=== PATIENT | male | born 1935 | race Caucasian/White ===

== ENCOUNTER 2017-04-13 15:50 | Emergency (ER) | payer MEDICARE, MEDICAID ==
[~2017-04-13] VITALS: Ht 172.7 cm; Wt 78.0 kg
[~2017-04-13 15:50] MED LIST: AMBIEN5 MG PO; AMLODIPINE10 MG PO; AMLODIPINE5 MG PO; ANUSOL HC25 MG RE; ASPIRIN CHEWABL81 MG OR; BACTRIM DS1 TAB PO; BENICAR HCT1 TA1 PO; CEFTIN250 MG PO; CLARITIN10 M1 PO; COLACE100 MG OR; CUBICIN500 MG IV; DEXILANT60 MG OR; DIGOXIN0.25 MG PO; DOXYCYC MONO100 M3 OR; EDTA PO; FACTOR 8 IV; FACTOR IV; FACTOR VIII IV; HYDRALAZINE25 MG PO; LASIX40 MG OR; LISINOPRIL2.5 MG PO; LISINOPRIL20 MG PO; LOPRESSOR25 M1 PO; METFORMIN500 M1 PO; METOPROL TAR50 MG PO; MILK OF MAG30 ML/UDC PO; MIRALAX3350 N1 PO; NORMAL SALIN0.9 % IV; OMEPRAZOLE20 MG PO; PERCOCET 5/321 COMBO PO; PERCOCET 5/325M1 TAB PO; ROBITUSSIN AC10 ML PO; SIMVASTATIN40 MG PO; TYLENOL # 31 TA1 OR; VENTOLIN HFA IN; ZOCOR20 MG PO; ZOFRAN ODT4 MG OR; [UNRECOGNIZED DRUG - CODE] RE; [UNRECOGNIZED DRUG - OTHER] IV
[2017-04-13] MEDS ORDERED: EC-NAPROSYN500 MG PO (16:38)
[2017-04-13] MEDS ORDERED: FLEXERIL PO (16:38)
[2017-04-13] MEDS ORDERED: PERCOCET 5/325M1 TAB PO (16:38)
[2017-04-13 16:47] VITALS: BP 150/70
== END 2017-04-13 16:55 | disposition home or self-care (01) ==
LOC: ED 15:50
DX: R51 Headache (principal); M43.6 Torticollis

== ENCOUNTER 2019-04-08 19:31 | Emergency (ER) | payer OTHER, MEDICARE, MEDICAID ==
[~2019-04-08] VITALS: Ht 172.7 cm; Wt 78.0 kg
[~2019-04-08 19:31] MED LIST changes: +AMLODIPINE BESY10 MG PO; -AMLODIPINE10 MG PO; +EC-NAPROSYN500 MG PO; +FLEXERIL PO; +HYDRALAZINE10 MG PO
[2019-04-08] MEDS ORDERED: ECOTRIN LOW STR81 MG PO (20:12)
[2019-04-08] MEDS ORDERED: TRIGLIDE160 MG PO (20:13)
[2019-04-08] MEDS ORDERED: METOPROL TAR100 MG PO (20:15)
[2019-04-08] MEDS ORDERED: JANUVIA100 MG PO (20:17)
[2019-04-08] MEDS ORDERED: CLONIDINE0.1 MG PO (20:17)
[2019-04-08] MEDS ORDERED: LEVOTHYROXIN25 MC1 PO (20:18)
[2019-04-08] MEDS ORDERED: NOVOSEVEN RT IJ (20:19)
[2019-04-08] MEDS ORDERED: HYDROCO/APAP1 TA9 PO (20:19)
[2019-04-08] MEDS ORDERED: ASPIRIN 8181 MG PO (20:38)
[2019-04-08] MEDS ORDERED: FLEXERIL5 M1 PO (21:25)
[2019-04-08 21:30] VITALS: BP 138/74
== END 2019-04-08 21:30 | disposition home or self-care (01) | DRG 552 ==
LOC: ED 19:31
DX: S16.1XXA Strain of muscle, fascia and tendon at neck level, initial encounter (principal); V43.52XA Car driver injured in collision with other type car in traffic accident, initial encounter

== ENCOUNTER 2020-04-17 07:43 | Day surgery (SDC) | payer MEDICARE, MEDICAID ==
[~2020-04-17 07:43] MED LIST changes: +ASPIRIN 8181 MG PO; +CLONIDINE0.1 MG PO; +ECOTRIN LOW STR81 MG PO; +FLEXERIL5 M1 PO; +HYDROCO/APAP1 TA9 PO; +JANUVIA100 MG PO; +LEVOTHYROXIN25 MC1 PO; +METFORMIN500 M2 PO; +METOPROL TAR100 MG PO; +NOVOSEVEN RT IV; +TOPROL XL100 MG PO; +TRIGLIDE160 MG PO
[2020-04-17 10:10] VITALS: BP 112/56
== END 2020-04-17 10:28 | disposition home or self-care (01) ==
LOC: ENDO 07:43 → ORM 09:30 → ENDO 09:30
PROVIDERS: ATTEND Surgery
PROC: 0DBH8ZX Excision of Cecum, Via Natural or Artificial Opening Endoscopic, Diagnostic (ICD-10-PCS; principal; 2020-04-17)
PROC: 0DBL8ZX Excision of Transverse Colon, Via Natural or Artificial Opening Endoscopic, Diagnostic (ICD-10-PCS; 2020-04-17)
DX: D12.0 Benign neoplasm of cecum (principal); K57.30 Diverticulosis of large intestine without perforation or abscess without bleeding; K64.8 Other hemorrhoids; D66 Hereditary factor VIII deficiency; I10 Essential (primary) hypertension; E11.9 Type 2 diabetes mellitus without complications; Z86.010 Personal history of colon polyps; Z20.828 Contact with and (suspected) exposure to other viral communicable diseases

== ENCOUNTER 2021-01-20 11:01 | Emergency (ER) | payer MEDICARE, MEDICAID ==
[~2021-01-20] VITALS: Ht 172.7 cm; Wt 74.0 kg
[2021-01-20 13:10] VITALS: BP 130/78
== END 2021-01-20 13:10 | disposition home or self-care (01) ==
LOC: ED 11:01
DX: B34.9 Viral infection, unspecified (principal); I10 Essential (primary) hypertension; E11.9 Type 2 diabetes mellitus without complications; Z79.84 Long term (current) use of oral hypoglycemic drugs; Z20.822 Contact with and (suspected) exposure to COVID-19

== ENCOUNTER 2023-01-16 12:07 | Emergency (ER) | payer MEDICARE, MEDICAID ==
[~2023-01-16] VITALS: Ht 172.7 cm; Wt 75.0 kg
[2023-01-16] MEDS ORDERED: LORTAB 5/3255 MG PO (14:14)
[2023-01-16 14:52] VITALS: BP 144/60
== END 2023-01-16 14:53 | disposition home or self-care (01) ==
LOC: ED 12:07
DX: S90.02XA Contusion of left ankle, initial encounter (principal); S80.12XA Contusion of left lower leg, initial encounter; D66 Hereditary factor VIII deficiency; I10 Essential (primary) hypertension; E11.9 Type 2 diabetes mellitus without complications; V00.818A Other accident with wheelchair (powered), initial encounter; Y92.009 Unspecified place in unspecified non-institutional (private) residence as the place of occurrence of the external cause; Z79.84 Long term (current) use of oral hypoglycemic drugs